=== PATIENT | female | born 1990 | race Caucasian/White ===

== ENCOUNTER 2017-05-24 20:19 | Emergency (ER) | payer OTHER, SELFPAY | END 2017-05-24 20:44 | disposition home or self-care (01) | PROVIDERS: Emergency Provider Nurse Practitioner; Family Provider Physician Assistant; Visit Provider Nurse Practitioner | DX: J10.1 Influenza due to other identified influenza virus with other respiratory manifestations (principal) | CPT/HCPCS: 87804; 99201 ==

== ENCOUNTER 2017-06-11 18:22 | Emergency (ER) | payer OTHER, SELFPAY ==
[2017-06-11 19:33] VITALS: BP 142/97; PULSE 85; RESP 18; TEMP 36.8; O2SAT 100; BMI 67.3
[2017-06-11 20:23] LABS: Microscopic, Urine URINE MICROSCOPIC (MICROSCOPIC)
[2017-06-11 20:29] LABS: Appearance,Urine Clear (Clear); Bilirubin,Urine Negative (Negative); Blood, Urine Negative (Negative); Color,Urine Yellow (Yellow); Glucose,Urine (UA) Negative (Negative); Ketones,Urine Negative (Negative); Leukocyte Esterase,Urine Negative (Negative); Nitrate,Urine Negative (Negative); Protein,Urine Negative (Negative); Specific Gravity, Urine 1.025 (1.005-1.030); Urobilinogen,Urine 0.2 EU/dl (0.2)
[2017-06-11 20:31] LABS: HCG,Quantitative 484 mIU/mL
--- NOTE | 2017-06-11 20:31 | HMH.EDGENADL ---
ED Disposition Clinical Impression: Lumbar back pain Qualifiers: Weeks of gestation: less than 8 weeks Qualified Code(s): Z3A.01 - Less than 8 weeks gestation of Disposition: Home, Self-Care Condition on Discharge: Good Instructions: DI for Low Back Pain Additional Instructions: keep appt with ob dr Referrals: Vanessa Snider PA [Primary Care Provider] - - Critical Care Critical Care Time: No Attestation: On 06/11/17, the high probability of a clinically significant, sudden or life threatening deterioration of the following system(s) required my full and direct attention, intervention and personal management. The time I documented below is in addition to time spent performing reported procedures but includes the following listed in this critical care notation. Medical Decision Making - Medical Records Medical records reviewed: Yes: I reviewed the patient's medical records. Vital Signs: 06/11/17 19:33 Temperature 98.3 F Temperature Source Oral Pulse Rate [Left Radial] 85 Respiratory Rate 18 Blood Pressure [Left Arm] 142/97 Blood Pressure Mean [Left Arm] 112 Blood Pressure Source [Left Arm] Automatic Cuff Blood Pressure Position [Left Arm] Supine 02 Sat by Pulse Oximetry 100 Oxygen Delivery Method Room Air - Lab Data Lab results reviewed: Yes: I reviewed the patient's lab results. Lab Results 06/11/17 20:10: Urine Color Yellow, Urine Appearance Clear, Urine pH 6.0, Ur Specific [place] 1.025, Urine Protein Negative, Urine Glucose (UA) Negative, Urine Ketones Negative, Urine Blood Negative, Urine Nitrate Negative, Urine Bilirubin Negative, Urine Urobilinogen 0.2, Ur Leukocyte Esterase Negative Orders (Tests/Meds): ED MEDICATIONS Discontinued Medications Generic Name Dose Route Start Last Admin Trade Name Pinky PRN Reason Stop Dose Admin Acetaminophen 650 mg 06/11/17 20:12 06/11/17 20:15 Acetaminophen 325mg Tab PO 06/11/17 20:13 650 mg ONCE ONE Administration - Pablo Inquiry Pt receiving controlled substance: No General Adult HPI - General Chief complaint: PAIN Stated complaint: back pain Time Seen by Provider: 06/11/17 20:31 Mode of Arrival: Ambulatory Source of Information: Patient Limitations: No Limitations Description of Symptoms (Recalled from ER Triage Doc. by RN): low back pain, after bending - History of Present Illness HPI narrative: pt with low back pain after bending yesterday with no radiation or neuro sx Onset (ago): day(s) Location: back Radiation: non-radiation Severity: moderate Quality: aching Consistency: intermittent Relieving factors: none Exacerbating factors: movement, other (pt is ) Treatments prior to arrival: none - Related Data Home Medications Medication Instructions Recorded Confirmed PARoxetine HCl [Paxil 20mg Tablet] 1 tab PO DAILY 06/11/17 06/11/17 Allergies Allergy/AdvReac Type Severity Reaction Status Date / Time sulfamethoxazole Allergy Unknown Verified 06/11/17 20:12 [SULFAMETHOXAZOLE] trimethoprim [TRIMETHOPRIM] Allergy Unknown Verified 06/11/17 20:12 [facility] History I have reviewed the patient's past medical history: Yes Medical History: Denies:: Cancer, Diabetes Mellitus Type 1, Diabetes Mellitus Type 2, MRSA Laterality Cases: Bilateral: Tonsillectomy Amputation: No Fractures: No - *Social History Educational Level: Completed High School Smoking Status: Never smoker Tobacco Type: smokeless tobacco Alcohol Intake: never - Psychiatric History Expresses thoughts of harming self/others: None Suicide Plan Description: No Plan Para: 0 ROS Obtained: Yes All systems reviewed & no additional complaints - Constitutional Constitutional: Denies fever(s) - Eyes Eyes: Denies change in vision - Cardiovascular Cardiovascular: Denies chest pain at rest - Respiratory Respiratory: No cough - Gastrointestinal Gastrointestingal: Denies: yodito
[2017-06-11 20:36] LABS: Bacteria,Urine Trace /lpf; WBC,Urine Occasional #/hpf (0-3)
--- NOTE | 2017-06-11 20:36 | ED_ITS ---
ED Disposition Clinical Impression: Lumbar back pain Qualifiers: Weeks of gestation: less than 8 weeks Qualified Code(s): Z3A.01 - Less than 8 weeks gestation of Disposition: Home, Self-Care Condition on Discharge: Good Instructions: DI for Low Back Pain Additional Instructions: keep appt with ob dr Referrals: Vanessa Snider PA [Primary Care Provider] - - Critical Care Critical Care Time: No Attestation: On 06/11/17, the high probability of a clinically significant, sudden or life threatening deterioration of the following system(s) required my full and direct attention, intervention and personal management. The time I documented below is in addition to time spent performing reported procedures but includes the following listed in this critical care notation. Medical Decision Making - Medical Records Medical records reviewed: Yes: I reviewed the patient's medical records. Vital Signs: 06/11/17 19:33 Temperature 98.3 F Temperature Source Oral Pulse Rate [Left Radial] 85 Respiratory Rate 18 Blood Pressure [Left Arm] 142/97 Blood Pressure Mean [Left Arm] 112 Blood Pressure Source [Left Arm] Automatic Cuff Blood Pressure Position [Left Arm] Supine 02 Sat by Pulse Oximetry 100 Oxygen Delivery Method Room Air - Lab Data Lab results reviewed: Yes: I reviewed the patient's lab results. Lab Results 06/11/17 20:10: Urine Color Yellow, Urine Appearance Clear, Urine pH 6.0, Ur Specific [place] 1.025, Urine Protein Negative, Urine Glucose (UA) Negative, Urine Ketones Negative, Urine Blood Negative, Urine Nitrate Negative, Urine Bilirubin Negative, Urine Urobilinogen 0.2, Ur Leukocyte Esterase Negative Orders (Tests/Meds): ED MEDICATIONS Discontinued Medications Generic Name Dose Route Start Last Admin Trade Name Pinky PRN Reason Stop Dose Admin Acetaminophen 650 mg 06/11/17 20:12 06/11/17 20:15 Acetaminophen 325mg Tab PO 06/11/17 20:13 650 mg ONCE ONE Administration - Pablo Inquiry Pt receiving controlled substance: No General Adult HPI - General Chief complaint: PAIN Stated complaint: back pain Time Seen by Provider: 06/11/17 20:31 Mode of Arrival: Ambulatory Source of Information: Patient Limitations: No Limitations Description of Symptoms (Recalled from ER Triage Doc. by RN): low back pain, after bending - History of Present Illness HPI narrative: pt with low back pain after bending yesterday with no radiation or neuro sx Onset (ago): day(s) Location: back Radiation: non-radiation Severity: moderate Quality: aching Consistency: intermittent Relieving factors: none Exacerbating factors: movement, other (pt is ) Treatments prior to arrival: none - Related Data Home Medications Medication Instructions Recorded Confirmed PARoxetine HCl [Paxil 20mg Tablet] 1 tab PO DAILY 06/11/17 06/11/17 Allergies Allergy/AdvReac Type Severity Reaction Status Date / Time sulfamethoxazole Allergy Unknown Verified 06/11/17 20:12 [SULFAMETHOXAZOLE] trimethoprim [TRIMETHOPRIM] Allergy Unknown Verified 06/11/17 20:12 [facility] History I have reviewed the patient's past medical history: Yes Medical History: Denies:: Can
[2017-06-11 20:49] VITALS: BP 138/62; PULSE 78; RESP 20; TEMP 36.9; O2SAT 97
== END 2017-06-11 20:49 | disposition home or self-care (01) ==
LOC: UTC 18:27 → ER 19:24
PROVIDERS: Emergency Provider Emergency Medicine; Family Provider Physician Assistant; PCP Physician Assistant
DX: O26.891 Other specified pregnancy related conditions, first trimester (principal); M54.5 Low back pain; Z3A.01 Less than 8 weeks gestation of pregnancy
CPT/HCPCS: 81001; 84702; 99283

== ENCOUNTER → 2017-06-20 15:57 | Outpatient (CLI) | payer OTHER, SELFPAY ==
[2017-06-20 18:44] LABS: Basophils % 0.3 % (0.1-2.0); Eosinophils # 0.1 K/mm3 (0.0-0.4); Eosinophils % 1.5 % (0.1-12.0); Hematocrit 40.7 % (37.0-47.0); Hemoglobin 12.7 g/dL (12.2-16.2); Lymphocytes % 36.3 K/mm3 (10-50); Mean Corpuscular HGB Conc 31.2 g/dL (31.8-35.4); Mean Corpuscular Hemoglobin 24.6 pg (27.0-31.2); Mean Corpuscular Volume 78.8 fl (81-99); Mean Platelet Volume 8.3 fl (7.4-10.4); Monocytes # 0.3 K/mm3 (0.1-1.0); Monocytes % 3.8 % (1.7-9.3); Neutrophils # 4.9 K/mm3 (1.8-7.8); Neutrophils % 58.2 % (37.0-80.0); Platelet Count 286 K/mm3 (142-424); Red Blood Count 5.17 M/mm3 (4.20-5.40); Red Cell Distribution Width 15.3 % (11.5-17.5); White Blood Count 8.4 K/mm3 (4.8-10.8)
[2017-06-20 19:16] LABS: Thyroid Stimulating Hormone 0.09 uIU/ml (0.358-3.740)
[2017-06-20 19:21] LABS: HCG,Quantitative 14 mIU/mL
[2017-06-20 23:11] LABS: Amphetamine/Metha Screen,Urine Negative ng/mL (<1000); Barbiturates Screen,Urine Negative ng/mL (<200); Benzodiazepines Screen,Urine Negative ng/mL (200); Cannabinoid Screen,Urine Negative ng/mL (<50); Cocaine Screen,Urine Negative ng/g (<300); Methadone Screen,Urine Negative ng/mL (<300); Opiate Screen,Urine Negative ng/mL (<300); Phencyclidine Screen,Urine Negative ng/mL (<25)
[2017-06-22 18:29] LABS: HIV Screen 4th Generation wRfx Non Reactive (Non Reactive); Hepatitis B Surface Antigen Negative (Negative); Rubella Antibodies, IgG 5.59 index (Immune >0.99)
== END ==
PROVIDERS: Family Provider Physician Assistant; PCP Physician Assistant; Visit Provider Obstetrics & Gynecology
DX: Z34.90 Encounter for supervision of normal pregnancy, unspecified, unspecified trimester (principal)
CPT/HCPCS: 36415; 80305; 84443; 84702; 85025; 86703; 86762; 86850; 87340; G0432

== ENCOUNTER 2017-06-22 12:43 | Emergency (ER) | payer OTHER, SELFPAY ==
[2017-06-22 12:50] VITALS: BP 149/98; PULSE 97; RESP 18; O2SAT 96; BMI 65.7
--- NOTE | 2017-06-22 12:59 | US_ITS ---
US transvaginal HISTORY: ITS.REASON: amenorrhea and vag bleeding, hx of positive preg t ORDERING PHYSICIAN: Vickie Fernandez MD PATIENT AGE: 26 years COMPARISON: None FINDINGS: The exam is technically difficult due to patient body habitus. UTERUS: The uterus measures 8 x 3.5 x 4.6 cm. Combined endometrial thickness is 7 mm. No intrauterine gestational sac apparent. RIGHT OVARY: 2.5 x 2.2 cm unremarkable LEFT OVARY: 2.5 x 1.9 cm unremarkable CUL-DE-SAC FLUID: No cul-de-sac fluid apparent OTHER FINDINGS: None IMPRESSION: No intrauterine gestation apparent. Recommend correlation with serum beta hCG. If beta hCG is positive then it may be too early to see an intrauterine gestation. Ectopic is also considered in the differential diagnosis with a positive test and no visible intrauterine gestational size
--- NOTE | 2017-06-22 13:01 | HMH.EDPREG ---
ED Disposition Clinical Impression: Vaginal bleeding, Obesity, RBC microcytosis, Dysfunctional uterine bleeding, First trimester Disposition: Home, Self-Care Condition on Discharge: Good Additional Instructions: The patient was advised to start using pads. follow up with Dr Angel in AM for possible D & C to determine the cause of her bleeding and misleading positive preg tests at home. daily iron supplement. return if for worse bleeding or if pain develops. Referrals: Vanessa Snider PA [Primary Care Provider] - Palomo Angel MD [Staff Physician] - - Critical Care Critical Care Time: No Attestation: On , the high probability of a clinically significant, sudden or life threatening deterioration of the following system(s) required my full and direct attention, intervention and personal management. The time I documented below is in addition to time spent performing reported procedures but includes the following listed in this critical care notation. Medical Decision Making - Medical Records Medical records reviewed: Yes: I reviewed the patient's medical records. Vital Signs: 06/22/17 12:50 Pulse Rate [Right Brachial] 97 H Respiratory Rate 18 Blood Pressure [Right Arm] 149/98 Blood Pressure Mean [Right Arm] 115 Blood Pressure Source [Right Arm] Automatic Cuff Blood Pressure Position [Right Arm] Sitting 02 Sat by Pulse Oximetry 96 Oxygen Delivery Method Room Air - Lab Data Lab Results 06/22/17 13:11: WBC 8.3, RBC 5.39, Hgb 13.1, Hct 41.7, MCV 77.3 L, MCH 24.3 L, MCHC 31.4 L, RDW 15.2, Plt Count 304, MPV 7.9, Neut % (Auto) 52.3, Lymph % (Auto) 41.3, [place] % (Auto) 4.5, Eos % (Auto) 1.6, Baso % (Auto) 0.3, Neut # (Auto) 4.4, Lymph # (Auto) 3.4, [place] # (Auto) 0.4, Eos # (Auto) 0.1, Baso # (Auto) 0.0 06/22/17 13:11: Sodium 140, Potassium 3.7, Chloride 104, Carbon Dioxide 29, Anion Gap 10.7, BUN 13, Creatinine 0.73, Estimated Creat Clear 97, Estimated GFR 97, Est GFR ( Amer) 118, Glucose 93, Calcium 8.9, Total Bilirubin 0.2, AST 17, ALT 27, Alkaline Phosphatase 87, Total Protein 8.1, Albumin 3.4, Globulin 4.7 H, Albumin/Globulin Ratio 0.7 L, HCG, Quant 6 H 06/22/17 13:30: Blood Type O Positive Result diagrams: 06/22/17 13:11 06/22/17 13:11 Orders (Tests/Meds): ED MEDICATIONS Discontinued Medications Generic Name Dose Route Start Last Admin Trade Name Pinky PRN Reason Stop Dose Admin Sodium Chloride 1,000 mls @ 999 mls/hr 06/22/17 13:00 06/22/17 13:23 Sod Chloride 0.9% 1000ml Bag IV 06/22/17 14:00 999 mls/hr .Q1H1M CRISTIANO Administration ORDERS Category Date Time Status US transvaginal Stat Exams 06/22/17 12:59 Ordered - Pablo Inquiry Pt receiving controlled substance: No Pablo was queried for this patient: No Medical Decision Making Narrative: Ultrasound examination there was no detectable . Her quantitative was 6. I called Dr. Bland honest john rocket crew member administration specialist. Me that she is not . She is to follow with Dr. Angel on Saturday. He will leave a message for his office to schedule her. HPI - General Chief complaint: Vaginal Bleeding Stated complaint: 2 months and bleeding Time Seen by Provider: 06/22/17 13:01 Source of Information: Patient, Significant Other - History of Present Illness HPI Narrative: 26 years old white female 1 para 0 A0. Last menstrual period May 02, 2017. She underwent a positive test on June 19, 2017. She so Dr. Angel on June 20 underwent 2 negative tests. She was told to come to the ED if she has any bleeding. Today, 1 hour ago while at work she went to use the bathroom and when she wiped she saw blood. 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 She denies passing blood clots or changing pads . 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
--- NOTE | 2017-06-22 13:05 | ED_ITS ---
ED Disposition Clinical Impression: Vaginal bleeding, Obesity, RBC microcytosis, Dysfunctional uterine bleeding, First trimester Disposition: Home, Self-Care Condition on Discharge: Good Additional Instructions: The patient was advised to start using pads. follow up with Dr Angel in AM for possible D & C to determine the cause of her bleeding and misleading positive preg tests at home. daily iron supplement. return if for worse bleeding or if pain develops. Referrals: Vanessa Snider PA [Primary Care Provider] - Palomo Angel MD [Staff Physician] - - Critical Care Critical Care Time: No Attestation: On , the high probability of a clinically significant, sudden or life threatening deterioration of the following system(s) required my full and direct attention, intervention and personal management. The time I documented below is in addition to time spent performing reported procedures but includes the following listed in this critical care notation. Medical Decision Making - Medical Records Medical records reviewed: Yes: I reviewed the patient's medical records. Vital Signs: 06/22/17 12:50 Pulse Rate [Right Brachial] 97 H Respiratory Rate 18 Blood Pressure [Right Arm] 149/98 Blood Pressure Mean [Right Arm] 115 Blood Pressure Source [Right Arm] Automatic Cuff Blood Pressure Position [Right Arm] Sitting 02 Sat by Pulse Oximetry 96 Oxygen Delivery Method Room Air - Lab Data Lab Results 06/22/17 13:11: WBC 8.3, RBC 5.39, Hgb 13.1, Hct 41.7, MCV 77.3 L, MCH 24.3 L, MCHC 31.4 L, RDW 15.2, Plt Count 304, MPV 7.9, Neut % (Auto) 52.3, Lymph % (Auto ) 41.3, [place] % (Auto) 4.5, Eos % (Auto) 1.6, Baso % (Auto) 0.3, Neut # (Auto) 4.4, Lymph # (Auto) 3.4, [place] # (Auto) 0.4, Eos # (Auto) 0.1, Baso # (Auto) 0.0 06/22/17 13:11: Sodium 140, Potassium 3.7, Chloride 104, Carbon Dioxide 29, Anion Gap 10.7, BUN 13, Creatinine 0.73, Estimated Creat Clear 97, Estimated GFR 97, Est GFR ( Amer) 118, Glucose 93, Calcium 8.9, Total Bilirubin 0.2 , AST 17, ALT 27, Alkaline Phosphatase 87, Total Protein 8.1, Albumin 3.4, Globulin 4.7 H, Albumin/Globulin Ratio 0.7 L, HCG, Quant 6 H 06/22/17 13:30: Blood Type O Positive Result diagrams: 06/22/17 13:11 06/22/17 13:11 Orders (Tests/Meds): ED MEDICATIONS Discontinued Medications Generic Name Dose Route Start Last Admin Trade Name Pinky PRN Reason Stop Dose Admin Sodium Chloride 1,000 mls @ 999 mls/hr 06/22/17 13:00 06/22/17 13:23 Sod Chloride 0.9% 1000ml Bag IV 06/22/17 14:00 999 mls/hr .Q1H1M CRISTIANO Administration ORDERS Category Date Time Status US transvaginal Stat Exams 06/22/17 12:59 Ordered - Pablo Inquiry Pt receiving controlled substance: No Pablo was queried for this patient: No Medical Decision Making Narrative: Ultrasound examination there was no detectable . Her quantitative was 6. I called Dr. Bland senior clinical consultant bird trapper. Me that she is not . She is to follow with Dr. Angel on Saturday. He will leave a message for his office to schedule her. HPI - General Chief complaint: Vaginal Bleeding Stated complaint: 2 months and bleeding Time Seen by Provider: 06/22/17 13:01 Source of Information: Patient, Significant Other - History of Present Illness HPI Narrative: 26 yea
[2017-06-22 13:21] LABS: Basophils % 0.3 % (0.1-2.0); Eosinophils # 0.1 K/mm3 (0.0-0.4); Eosinophils % 1.6 % (0.1-12.0); Hematocrit 41.7 % (37.0-47.0); Hemoglobin 13.1 g/dL (12.2-16.2); Lymphocytes # 3.4 K/mm3 (0.7-4.5); Lymphocytes % 41.3 K/mm3 (10-50); Mean Corpuscular HGB Conc 31.4 g/dL (31.8-35.4); Mean Corpuscular Hemoglobin 24.3 pg (27.0-31.2); Mean Corpuscular Volume 77.3 fl (81-99); Mean Platelet Volume 7.9 fl (7.4-10.4); Monocytes # 0.4 K/mm3 (0.1-1.0); Monocytes % 4.5 % (1.7-9.3); Neutrophils # 4.4 K/mm3 (1.8-7.8); Neutrophils % 52.3 % (37.0-80.0); Platelet Count 304 K/mm3 (142-424); Red Blood Count 5.39 M/mm3 (4.20-5.40); Red Cell Distribution Width 15.2 % (11.5-17.5); White Blood Count 8.3 K/mm3 (4.8-10.8)
[2017-06-22 13:41] LABS: Alanine Aminotransferase 27 U/L (12-78); Albumin Level 3.4 gm/dL (3.4-5.0); Albumin/Globulin Ratio 0.7 (1.1-1.8); Alkaline Phosphatase 87 U/L (46-116); Anion Gap 10.7 mEq/L (5-15); Aspartate Amino Transferase 17 U/L (15-37); Bilirubin,Total 0.2 mg/dL (0.2-1.0); Blood Urea Nitrogen 13 mg/dL (7-18); Calcium 8.9 mg/dL (8.5-10.1); Carbon Dioxide 29 mmol/L (21.0-32.0); Chloride 104 mmol/L (98-107); Creatinine Clearance Estimated 97 mL/min (0-300); Creatinine,Serum 0.73 mg/dL (0.55-1.02); Estimated Glomerular Filt Rate 97 ml/min (>60); GFR (African American) 118 ML/MIN (>60); Globulin 4.7 gm/dl (1.3-3.2); Glucose 93 mg/dL (74-106); Potassium 3.7 mmoL/L (3.5-5.1); Sodium 140 mmol/L (136-145); Total Protein,Serum 8.1 gm/dL (6.4-8.2)
[2017-06-22 13:47] LABS: HCG,Quantitative 6 mIU/mL
[2017-06-22 14:21] VITALS: BP 125/74; PULSE 80; TEMP 36.8
== END 2017-06-22 14:21 | disposition home or self-care (01) ==
PROVIDERS: Emergency Provider Emergency Medicine; Family Provider Physician Assistant; PCP Physician Assistant
DX: O03.9 Complete or unspecified spontaneous abortion without complication (principal); E66.9 Obesity, unspecified; N93.8 Other specified abnormal uterine and vaginal bleeding; Z79.899 Other long term (current) drug therapy; Z88.8 Allergy status to other drugs, medicaments and biological substances
CPT/HCPCS: 36415; 76830; 80053; 84702; 85025; 86900; 86901; 96365; 99281; 99282

== ENCOUNTER 2017-06-26 19:04 | Emergency (ER) | payer OTHER, SELFPAY ==
[2017-06-26 19:05] VITALS: BP 107/73; PULSE 101; RESP 14; TEMP 37.1; O2SAT 97; BMI 67.8
--- NOTE | 2017-06-26 19:25 | XR_ITS ---
XR chest 2V HISTORY: Hypertension ORDERING PHYSICIAN: Kenrick Moe MD PATIENT AGE: 26 years COMPARISON: None available FINDINGS: Cardiac size is upper limits of normal. No CHF.. 1 7-m nodule present in the right midlung. There may be some calcification of the nodule centrally. The remaining lungs are clear. No effusions or infiltrates. No acute bony anomalies. IMPRESSION: Right midlung nodule which may represent a granuloma. Follow-up recommended for confirmation..
[2017-06-26 19:29] LABS: Basophils % 0.3 % (0.1-2.0); Eosinophils # 0.1 K/mm3 (0.0-0.4); Eosinophils % 1.1 % (0.1-12.0); Hematocrit 41.3 % (37.0-47.0); Hemoglobin 12.7 g/dL (12.2-16.2); Lymphocytes # 4.1 K/mm3 (0.7-4.5); Lymphocytes % 43.6 K/mm3 (10-50); Mean Corpuscular HGB Conc 30.8 g/dL (31.8-35.4); Mean Corpuscular Volume 78.1 fl (81-99); Monocytes # 0.4 K/mm3 (0.1-1.0); Monocytes % 4.3 % (1.7-9.3); Neutrophils # 4.7 K/mm3 (1.8-7.8); Neutrophils % 50.7 % (37.0-80.0); Platelet Count 293 K/mm3 (142-424); Red Blood Count 5.29 M/mm3 (4.20-5.40); Red Cell Distribution Width 15.2 % (11.5-17.5); White Blood Count 9.4 K/mm3 (4.8-10.8)
[2017-06-26 19:32] LABS: Microscopic, Urine URINE MICROSCOPIC (MICROSCOPIC)
[2017-06-26 19:34] VITALS: BP 118/71; PULSE 96; O2SAT 98
[2017-06-26 19:40] LABS: Appearance,Urine CLEAR (Clear); Bilirubin,Urine Negative (Negative); Blood, Urine 3+ (Negative); Color,Urine YELLOW (Yellow); Glucose,Urine (UA) Negative (Negative); Ketones,Urine Negative (Negative); Leukocyte Esterase,Urine Negative (Negative); Nitrate,Urine Negative (Negative); Protein,Urine Negative (Negative); Specific Gravity, Urine >= 1.030 (1.005-1.030); Urobilinogen,Urine 0.2 EU/dl (0.2)
[2017-06-26 19:58] LABS: Bacteria,Urine 2+ /lpf; Mucus,Urine 1+ /lpf; Squamous Epithelial Cell,Urine 20-50 #/hpf (0-5)
[2017-06-26 20:00] LABS: Creatine Kinase 138 U/L (26-192); Troponin I < 0.02 ng/ml (0.00-0.06)
[2017-06-26 20:02] LABS: CKMB Relative Index 0.4 U/L (0-4.0); Creatine Kinase MB < 0.5 mg/ml (0.0-3.6)
[2017-06-26 20:06] LABS: Alanine Aminotransferase 27 U/L (12-78); Albumin Level 3.2 gm/dL (3.4-5.0); Albumin/Globulin Ratio 0.7 (1.1-1.8); Alkaline Phosphatase 91 U/L (46-116); Anion Gap 10.6 mEq/L (5-15); Aspartate Amino Transferase 17 U/L (15-37); Bilirubin,Total 0.1 mg/dL (0.2-1.0); Blood Urea Nitrogen 15 mg/dL (7-18); Calcium 8.8 mg/dL (8.5-10.1); Carbon Dioxide 29 mmol/L (21.0-32.0); Chloride 108 mmol/L (98-107); Creatinine Clearance Estimated 115 mL/min (0-300); Creatinine,Serum 0.59 mg/dL (0.55-1.02); Estimated Glomerular Filt Rate 124 ml/min (>60); GFR (African American) 150 ML/MIN (>60); Globulin 4.7 gm/dl (1.3-3.2); Glucose 90 mg/dL (74-106); Potassium 3.6 mmoL/L (3.5-5.1); Sodium 144 mmol/L (136-145); Total Protein,Serum 7.9 gm/dL (6.4-8.2)
--- NOTE | 2017-06-26 20:29 | HMH.EDGENADL ---
ED Disposition Clinical Impression: Headache Qualifiers: Headache type: unspecified Headache chronicity pattern: acute headache Intractability: not intractable Qualified Code(s): R51 - Headache Disposition: Home, Self-Care Condition on Discharge: Good Instructions: DI for Headache Additional Instructions: see pcp for follow up Referrals: Vanessa Snider PA [Primary Care Provider] - - Critical Care Critical Care Time: No Attestation: On 06/26/17, the high probability of a clinically significant, sudden or life threatening deterioration of the following system(s) required my full and direct attention, intervention and personal management. The time I documented below is in addition to time spent performing reported procedures but includes the following listed in this critical care notation. Medical Decision Making - Medical Records Medical records reviewed: Yes: I reviewed the patient's medical records. Vital Signs: 06/26/17 19:05 06/26/17 19:34 Temperature 98.7 F Temperature Source Oral Pulse Rate [Right Brachial] 101 H 96 H Respiratory Rate 14 Blood Pressure [Right Arm] 107/73 118/71 Blood Pressure Mean [Right Arm] 84 86 Blood Pressure Source [Right Arm] Automatic Cuff Automatic Cuff Blood Pressure Position [Right Arm] Sitting Sitting 02 Sat by Pulse Oximetry 97 98 Oxygen Delivery Method Room Air Room Air - Lab Data Lab Results 06/26/17 19:20: Urine Color Yellow, Urine Appearance Clear, Urine pH 6.0, Ur Specific [place] >= 1.030, Urine Protein Negative, Urine Glucose (UA) Negative, Urine Ketones Negative, Urine Blood 3+, Urine Nitrate Negative, Urine Bilirubin Negative, Urine Urobilinogen 0.2, Ur Leukocyte Esterase Negative, Urine RBC 3-5, Urine WBC 5-10, Ur Squamous Epith Cells 20-50, Urine Bacteria 2+, Urine Mucus 1+ 06/26/17 19:20: WBC 9.4, RBC 5.29, Hgb 12.7, Hct 41.3, MCV 78.1 L, MCH 24.0 L, MCHC 30.8 L, RDW 15.2, Plt Count 293, MPV 8.0, Neut % (Auto) 50.7, Lymph % (Auto) 43.6, [place] % (Auto) 4.3, Eos % (Auto) 1.1, Baso % (Auto) 0.3, Neut # (Auto) 4.7, Lymph # (Auto) 4.1, [place] # (Auto) 0.4, Eos # (Auto) 0.1, Baso # (Auto) 0.0 06/26/17 19:20: Sodium 144, Potassium 3.6, Chloride 108 H, Carbon Dioxide 29, Anion Gap 10.6, BUN 15, Creatinine 0.59, Estimated Creat Clear 115, Estimated GFR 124, Est GFR ( Amer) 150, Glucose 90, Calcium 8.8, Total Bilirubin 0.1 L, AST 17, ALT 27, Alkaline Phosphatase 91, Total Protein 7.9, Albumin 3.2 L, Globulin 4.7 H, Albumin/Globulin Ratio 0.7 L 06/26/17 19:20: Total Creatine Kinase 138, CK-MB (CK-2) < 0.5, CK-MB (CK-2) Rel Index 0.4, Troponin I < 0.02 06/26/17 19:20: Urine HCG, Qual Negative Result diagrams: 06/26/17 19:20 06/26/17 19:20 Orders (Tests/Meds): ORDERS Category Date Time Status Urine Culture Stat Micro 06/26/17 19:20 Received ECG Request by /Johanna Stat Y 06/26/17 19:17 Ordered - Radiology Data #1 Image(s): Chest Image Reviewed: Yes I reviewed the patient's radiology image Preliminary Findings: Normal/NAD - ECG Data Tracing #1 I reviewed this ECG and interpreted as documented below: - Pablo Inquiry Pt receiving controlled substance: No General Adult HPI - General Chief complaint: PAIN Stated complaint: H/A, HTN Time Seen by Provider: 06/26/17 20:29 Mode of Arrival: Ambulatory Source of Information: Patient, Spouse, Medical Record Limitations: No Limitations Description of Symptoms (Recalled from ER Triage Doc. by RN): PT WAS C/O HEADACHE AT WORK, AND THE NURSE THERE TOLD HER TO COME TO THE ER FOR BP OF 142/90 PT DENIES ANY CP OR SOA - History of Present Illness HPI narrative: pt with lieberman at work and has elevated bp - no neuro sx and no other c/o Onset (ago): day(s) Severity: moderate Associated symptoms: headaches. negative: fever/chills - Related Data Home Medications Medication Instructions Recorded Confirmed 1 tab PO QDAY 06/20/17 06/26/17 vitamin,calcium,[id number]
[2017-06-26 20:30] LABS: Urine Pregnancy, HCG Qual. Negative (Negative)
--- NOTE | 2017-06-26 20:35 | ED_ITS ---
ED Disposition Clinical Impression: Headache Qualifiers: Headache type: unspecified Headache chronicity pattern: acute headache Intractability: not intractable Qualified Code(s): R51 - Headache Disposition: Home, Self-Care Condition on Discharge: Good Instructions: DI for Headache Additional Instructions: see pcp for follow up Referrals: Vanessa Snider PA [Primary Care Provider] - - Critical Care Critical Care Time: No Attestation: On 06/26/17, the high probability of a clinically significant, sudden or life threatening deterioration of the following system(s) required my full and direct attention, intervention and personal management. The time I documented below is in addition to time spent performing reported procedures but includes the following listed in this critical care notation. Medical Decision Making - Medical Records Medical records reviewed: Yes: I reviewed the patient's medical records. Vital Signs: 06/26/17 19:05 06/26/17 19:34 Temperature 98.7 F Temperature Source Oral Pulse Rate [Right Brachial] 101 H 96 H Respiratory Rate 14 Blood Pressure [Right Arm] 107/73 118/71 Blood Pressure Mean [Right Arm] 84 86 Blood Pressure Source [Right Arm] Automatic Cuff Automatic Cuff Blood Pressure Position [Right Arm] Sitting Sitting 02 Sat by Pulse Oximetry 97 98 Oxygen Delivery Method Room Air Room Air - Lab Data Lab Results 06/26/17 19:20: Urine Color Yellow, Urine Appearance Clear, Urine pH 6.0, Ur Specific [place] >= 1.030, Urine Protein Negative, Urine Glucose (UA) Negative, Urine Ketones Negative, Urine Blood 3+, Urine Nitrate Negative, Urine Bilirubin Negative, Urine Urobilinogen 0.2, Ur Leukocyte Esterase Negative, Urine RBC 3-5 , Urine WBC 5-10, Ur Squamous Epith Cells 20-50, Urine Bacteria 2+, Urine Mucus 1+ 06/26/17 19:20: WBC 9.4, RBC 5.29, Hgb 12.7, Hct 41.3, MCV 78.1 L, MCH 24.0 L, MCHC 30.8 L, RDW 15.2, Plt Count 293, MPV 8.0, Neut % (Auto) 50.7, Lymph % (Auto ) 43.6, [place] % (Auto) 4.3, Eos % (Auto) 1.1, Baso % (Auto) 0.3, Neut # (Auto) 4.7, Lymph # (Auto) 4.1, [place] # (Auto) 0.4, Eos # (Auto) 0.1, Baso # (Auto) 0.0 06/26/17 19:20: Sodium 144, Potassium 3.6, Chloride 108 H, Carbon Dioxide 29, Anion Gap 10.6, BUN 15, Creatinine 0.59, Estimated Creat Clear 115, Estimated GFR 124, Est GFR ( Amer) 150, Glucose 90, Calcium 8.8, Total Bilirubin 0.1 L, AST 17, ALT 27, Alkaline Phosphatase 91, Total Protein 7.9, Albumin 3.2 L , Globulin 4.7 H, Albumin/Globulin Ratio 0.7 L 06/26/17 19:20: Total Creatine Kinase 138, CK-MB (CK-2) < 0.5, CK-MB (CK-2) Rel Index 0.4, Troponin I < 0.02 06/26/17 19:20: Urine HCG, Qual Negative Result diagrams: 06/26/17 19:20 06/26/17 19:20 Orders (Tests/Meds): ORDERS Category Date Time Status Urine Culture Stat Micro 06/26/17 19:20 Received ECG Request by /Johanna Stat Y 06/26/17 19:17 Ordered - Radiology Data #1 Image(s): Chest Image Reviewed: Yes I reviewed the patient's radiology image Preliminary Findings: Normal/NAD - ECG Data Tracing #1 I reviewed this ECG and interpreted as documented below: - Pablo Inquiry Pt receiving controlled substance: No General Adult HPI - General Chief complaint: PAIN Stated complaint: H/A, HTN Time Seen by Provider: 06/26/17 20:29 Mode of Arrival: Ambulatory Source of Information: Patient, Spouse, Medical Record Limitations: No Limitations Description
== END 2017-06-26 20:57 | disposition home or self-care (01) ==
PROVIDERS: Emergency Provider Emergency Medicine; Family Provider Physician Assistant; PCP Physician Assistant
DX: R51 Headache (principal); R03.0 Elevated blood-pressure reading, without diagnosis of hypertension
CPT/HCPCS: 71046; 80053; 81001; 81025; 82550; 82553; 84484; 85025; 87086; 93005; 93041; 99284

== ENCOUNTER 2017-08-17 18:43 | Emergency (ER) | payer OTHER, SELFPAY ==
[2017-08-17 18:49] VITALS: BP 143/78; PULSE 96; RESP 22; TEMP 37; O2SAT 98; BMI 67.3
--- NOTE | 2017-08-17 19:17 | HMH.EDDENT ---
ED Disposition Clinical Impression: Dental caries, Dental caries limited to enamel Disposition: Home, Self-Care Condition on Discharge: Good Instructions: DI for Dental Pain Additional Instructions: See dentist of choice next week or go to [facility] urgent dental clinic in [place]. 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 The time I documented below is in addition to time spent performing reported procedures but includes the following listed in this critical care notation. Medical Decision Making - Pablo Inquiry Pt receiving controlled substance: No Vital Signs: 08/17/17 18:49 Temperature 98.6 F Temperature Source Oral Pulse Rate [Left Brachial] 96 H Respiratory Rate 22 Blood Pressure [Left Arm] 143/78 Blood Pressure Mean [Left Arm] 99 Blood Pressure Source [Left Arm] Automatic Cuff Blood Pressure Position [Left Arm] Sitting 02 Sat by Pulse Oximetry 98 Oxygen Delivery Method Room Air Orders (Tests/Meds): ED MEDICATIONS Discontinued Medications Generic Name Dose Route Start Last Admin Trade Name Freq PRN Reason Stop Dose Admin Benzocaine/Butamben/Tetracaine HCl 1 gm 08/17/17 18:57 Cetacaine [place] TP 08/17/17 18:58 ONCE ONE Lidocaine HCl 15 ml 08/17/17 18:57 Lidocaine 2% Viscous Solution 15ml Udc PO 08/17/17 18:58 ONCE ONE Dental HPI - General Chief complaint: Dental/Oral Stated complaint: dental pain Time Seen by Provider: 08/17/17 19:21 Mode of Arrival: Ambulatory Limitations: No Limitations Description of Symptoms (Recalled from ER Triage Doc. by RN): Dental pain - History of Present Illness HPI Narrative: Has chronically broken tooth number 1. Recently hurting over past week without any acute trauma; no fever or vomiting; no swelling; needs a dentist and knows of several locally. Has not been to a dentist in many years. MD Complaint: tooth pain Location: Tooth # (1) Onset (ago): week(s) Duration: constant Severity: mild Relieving factors: nothing Exacerbating factors: chewing Context: history of dental caries, poor dental care Treatment prior to arrival: none - Related Data Home Medications Medication Instructions Recorded Confirmed 1 tab PO QDAY 06/20/17 06/26/17 vitamin,calcium,pclxwqrs-iayg-twqdi acid tablet Previous Rx's Medication Instructions Recorded Amoxicillin [Amoxicillin 500mg 500 mg PO TID 10 Days #30 cap 08/17/17 Cap] Naproxen [EC-Naprosyn] 500 mg PO BID PRN #20 tablet. 08/17/17 Allergies Allergy/AdvReac Type Severity Reaction Status Date / Time sulfamethoxazole Allergy Unknown Verified 06/20/17 14:53 [SULFAMETHOXAZOLE] trimethoprim [TRIMETHOPRIM] Allergy Unknown Verified 06/20/17 14:53 [facility] History Medical History: Denies:: Cancer, Diabetes Mellitus Type 1, Diabetes Mellitus Type 2, MRSA Laterality Cases: Bilateral: Tonsillectomy Amputation: No Fractures: No - Social History Smoking Status: Current every day smoker Tobacco Type: cigarettes Alcohol Intake: never Substance Use Type: painkillers - Psychiatric History Expresses thoughts of harming self/others: None Suicide Plan Description: No Plan ROS Obtained: Yes All systems reviewed & no additional complaints - Genitourinary Female Genitourinary: Reports other (had spont AB three months ago; did a preg test yesterday that was negative) Physical Exam - General General appearance: alert, in no apparent dist
--- NOTE | 2017-08-17 19:21 | ED_ITS ---
ED Disposition Clinical Impression: Dental caries, Dental caries limited to enamel Disposition: Home, Self-Care Condition on Discharge: Good Instructions: DI for Dental Pain Additional Instructions: See dentist of choice next week or go to [facility] urgent dental clinic in [place]. 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 The time I documented below is in addition to time spent performing reported procedures but includes the following listed in this critical care notation. Medical Decision Making - Pablo Inquiry Pt receiving controlled substance: No Vital Signs: 08/17/17 18:49 Temperature 98.6 F Temperature Source Oral Pulse Rate [Left Brachial] 96 H Respiratory Rate 22 Blood Pressure [Left Arm] 143/78 Blood Pressure Mean [Left Arm] 99 Blood Pressure Source [Left Arm] Automatic Cuff Blood Pressure Position [Left Arm] Sitting 02 Sat by Pulse Oximetry 98 Oxygen Delivery Method Room Air Orders (Tests/Meds): ED MEDICATIONS Discontinued Medications Generic Name Dose Route Start Last Admin Trade Name Freq PRN Reason Stop Dose Admin Benzocaine/Butamben/Tetracaine HCl 1 gm 08/17/17 18:57 Cetacaine [place] TP 08/17/17 18:58 ONCE ONE Lidocaine HCl 15 ml 08/17/17 18:57 Lidocaine 2% Viscous Solution 15ml Udc PO 08/17/17 18:58 ONCE ONE Dental HPI - General Chief complaint: Dental/Oral Stated complaint: dental pain Time Seen by Provider: 08/17/17 19:21 Mode of Arrival: Ambulatory Limitations: No Limitations Description of Symptoms (Recalled from ER Triage Doc. by RN): Dental pain - History of Present Illness HPI Narrative: Has chronically broken tooth number 1. Recently hurting over past week without any acute trauma; no fever or vomiting; no swelling; needs a dentist and knows of several locally. Has not been to a dentist in many years. MD Complaint: tooth pain Location: Tooth # (1) Onset (ago): week(s) Duration: constant Severity: mild Relieving factors: nothing Exacerbating factors: chewing Context: history of dental caries, poor dental care Treatment prior to arrival: none - Related Data Home Medications Medication Instructions Recorded Confirmed 1 tab PO QDAY 06/20/17 06/26/17 vitamin,calcium,ymxknxkc-wviy-wlkju acid tablet Previous Rx's Medication Instructions Recorded Amoxicillin [Amoxicillin 500mg 500 mg PO TID 10 Days #30 cap 08/17/17 Cap] Naproxen [EC-Naprosyn] 500 mg PO BID PRN #20 tablet. 08/17/17 Allergies Allergy/AdvReac Type Severity Reaction Status Date / Time sulfamethoxazole Allergy Unknown Verified 06/20/17 14:53 [SULFAMETHOXAZOLE] trimethoprim [TRIMETHOPRIM] Allergy Unknown
[2017-08-17 19:52] VITALS: BP 134/74; PULSE 84; RESP 16; TEMP 36.8; O2SAT 18
== END 2017-08-17 19:54 | disposition home or self-care (01) ==
PROVIDERS: Emergency Provider Emergency Medicine; Family Provider Physician Assistant; PCP Physician Assistant
DX: K02.9 Dental caries, unspecified (principal)
CPT/HCPCS: 99281

== ENCOUNTER → 2018-07-04 09:48 | Outpatient (CLI) | payer OTHER, SELFPAY ==
[2018-07-04 10:32] LABS: Basophils % 0.2 % (0.1-2.0); Eosinophils # 0.1 K/mm3 (0.0-0.4); Hematocrit 39.4 % (37.0-47.0); Hemoglobin 12.4 g/dL (12.2-16.2); Lymphocytes # 2.3 K/mm3 (0.7-4.5); Lymphocytes % 28.6 % (10-50); Mean Corpuscular HGB Conc 31.5 g/dL (31.8-35.4); Mean Corpuscular Hemoglobin 23.9 pg (27.0-31.2); Mean Corpuscular Volume 75.9 fl (81-99); Mean Platelet Volume 6.5 fl (7.4-10.4); Monocytes # 0.3 K/mm3 (0.1-1.0); Monocytes % 3.8 % (1.7-9.3); Neutrophils # 5.3 K/mm3 (1.8-7.8); Neutrophils % 66.4 % (37.0-80.0); Platelet Count 289 K/mm3 (142-424); Red Blood Count 5.19 M/mm3 (4.20-5.40); Red Cell Distribution Width 15.9 % (11.5-17.5)
[2018-07-04 11:05] LABS: Thyroid Stimulating Hormone 0.02 uIU/ml (0.358-3.740)
[2018-07-05 09:16] LABS: HIV Screen 4th Generation wRfx Non Reactive (Non Reactive)
[2018-07-07 08:37] LABS: Hepatitis B Surface Antigen Negative (Negative); Rapid Plasma Reagin Ab Titer Non Reactive (NonRea<1:1); Rubella Antibodies, IgG 4.46 index (Immune >0.99)
== END ==
PROVIDERS: Visit Provider Obstetrics & Gynecology
DX: Z34.90 Encounter for supervision of normal pregnancy, unspecified, unspecified trimester (principal)
CPT/HCPCS: 36415; 84443; 85025; 86592; 86703; 86762; 86850; 87340; G0432

== ENCOUNTER 2018-07-10 10:12 | Outpatient (CLI) | payer OTHER, SELFPAY ==
[2018-07-10] VITALS (9 sets, daily range): BP systolic 102–159; BP diastolic 58–100; PULSE 87–110; RESP 18–20; TEMP 36.2–36.8; O2SAT 95–99; BMI 65.0
--- NOTE | 2018-07-10 10:24 | US_ITS ---
US OB transvaginal HISTORY: ITS.REASON: threatened ORDERING PHYSICIAN: Palomo Angel MD PATIENT AGE: 27 years COMPARISON: None FINDINGS: There is an intrauterine gestational sac . A pole is present with a crown-rump length of 1.3 cm correlating to a gestational age of 7 weeks and 4 days. heart tones however are not identified. The yolk sac is collapsed.. There is a small right ovarian cyst at 17 mm. IMPRESSION: Intrauterine gestation at 7 weeks 4 days. No heart tones are evident. Consistent with incomplete spontaneous miscarriage
[2018-07-10 12:23] LABS: HCG,Quantitative 11397 mIU/mL
--- NOTE | 2018-07-10 16:24 | P.OP_ITS ---
Date of procedure: 07/10/18 Pre-op Diagnosis:: Missed spontaneous Post-op Diagnosis:: Missed spontaneous Procedure performed:: Dilatation and suction curettage Surgeon:: Palomo Angel MD DIRECTOR OF ATHLETICS:: Yosvany Louie Anesthesia: GETA Estimated blood loss (mL): 100 Operative findings:: Missed spontaneous Operative note:: After the patient was prepped and draped in the usual fashion and general in the excised anteverted uterus, with no palpable adnexal masses. A weighted speculum was placed within the posterior fourchette of the vagina, and the anterior lip of the cervix was grasped with a single-tooth tenaculum. The uterus was sounded in an anteverted direction to 9 cm, and easily admitted a #12 Hegar dilator. The cervix was easily dilated to #20 Hegar dilators. A sharp curette was introduced into the endometrial cavity, with the retrieval of a moderate amount of products of conception and blood. This was followed by suction with a #9 curved suction tip, and again by sharp curettage and suction, until it was felt that the cavity was clean. Intravenous Pitocin was then begun and the uterus was then the procedure. The instruments were removed. The sponge and needle counts correct. Blood loss was 100 cc. The patient tolerated the procedure well, and was taken to PACU in excellent condition. Her blood type is O Rh+, and therefore she is a candidate for RhoGam. She will be discharged today, if her vital signs are stable. Condition: stable Disposition: same day Specimens:: Products of conception Complications:: None
--- NOTE | 2018-07-10 17:51 | PC.NURSE ---
1635- 2 mg versed given per beekeeper orders. see emar. vss.
[2018-07-10 17:52] LABS: Hematocrit 39.3 % (37.0-47.0)
== END 2018-07-10 17:31 | disposition home or self-care (01) ==
LOC: LAB 13:41 → OR 13:43
PROVIDERS: PCP Physician Assistant; Visit Provider Obstetrics & Gynecology
DX: Z34.90 Encounter for supervision of normal pregnancy, unspecified, unspecified trimester (principal); O02.1 Missed abortion
CPT/HCPCS: 59821; 36415; 76817; 84702; 85014; 85018; 96374; J2405

== ENCOUNTER → 2018-09-10 14:33 | Outpatient (CLI) | payer OTHER, SELFPAY | PROVIDERS: Visit Provider Physician Assistant | DX: N89.8 Other specified noninflammatory disorders of vagina (principal) | CPT/HCPCS: 87210 ==

== ENCOUNTER → 2018-09-10 19:04 | Outpatient (CLI) | payer OTHER, SELFPAY ==
[2018-09-12 23:11] LABS: Neisseria gonorrhoeae, NAA Negative (Negative)
== END ==
PROVIDERS: Visit Provider Physician Assistant
DX: R10.9 Unspecified abdominal pain (principal); N76.0 Acute vaginitis
CPT/HCPCS: 87086; 87491; 87591

== ENCOUNTER → 2020-12-14 10:13 | Outpatient (CLI) | payer OTHER, SELFPAY ==
[2020-12-14 11:19] LABS: Alanine Aminotransferase 23 U/L (12-78); Albumin Level 3.6 g/dl (3.5-5.0); Albumin/Globulin Ratio 1.2 (1.1-1.8); Alkaline Phosphatase 105 U/L (38-126); Anion Gap 12.9 mEq/L (5-15); Aspartate Amino Transferase 24 U/L (14-36); Bilirubin,Total 0.4 mg/dl (0.2-1.3); Blood Urea Nitrogen 10 mg/dl (7-17); Calcium 9.1 mg/dl (8.4-10.2); Carbon Dioxide 26 mmol/L (22.0-30.0); Chloride 105 mmol/L (98-107); Chol/HDL Ratio 2.3 (1-3.5); Cholesterol 108 mg/dl (140-200); Estimated Glomerular Filt Rate 263 ml/min (>60); GFR (African American) 318 ML/MIN (>60); Globulin 3.1 g/dL (1.3-3.2); Glucose 103 mg/dl (74-100); HDL Cholesterol 48 mg/dl (40-60); Potassium 4.9 mmoL/L (3.5-5.1); Sodium 139 mmol/L (136-145); Total Protein,Serum 6.7 g/dl (6.3-8.2); Triglycerides 143 mg/dl (30-150); VLDL Cholesterol 29 mg/dL (0-40)
[2020-12-14 11:36] LABS: 25-OH Vitamin D, Total 40.1 ng/mL (30-100)
[2020-12-14 12:27] LABS: Basophils # 0.1 K/mm3 (0-0.2); Basophils % 0.9 % (0.1-2.0); Eosinophils # 0.1 K/mm3 (0.0-0.4); Eosinophils % 1.2 % (0.1-12.0); Hemoglobin 13.5 g/dL (12.2-16.2); Lymphocytes # 3.1 K/mm3 (0.7-4.5); Lymphocytes % 44.4 % (10-50); Mean Corpuscular HGB Conc 34.7 g/dL (31.8-35.4); Mean Corpuscular Hemoglobin 25.4 pg (27.0-31.2); Mean Corpuscular Volume 73.3 fl (81-99); Mean Platelet Volume 8.9 fl (7.4-10.4); Monocytes # 0.4 K/mm3 (0.1-1.0); Monocytes % 5.3 % (1.7-9.3); Neutrophils # 3.4 K/mm3 (1.8-7.8); Neutrophils % 48.2 % (37.0-80.0); Platelet Count 323 K/mm3 (142-424); Red Blood Count 5.32 M/mm3 (4.20-5.40); Red Cell Distribution Width 15.2 % (11.5-17.5); White Blood Count 6.9 K/mm3 (4.8-10.8)
[2020-12-14 16:44] LABS: Direct LDL Cholesterol 36.74 mg/dL (100-129)
[2020-12-14 17:04] LABS: Thyroid Stimulating Hormone < 0.02 uIU/mL (0.465-4.68)
[2020-12-14 17:06] LABS: T4 (Thyroxine) > 24.9 ug/dl (5.53-11.0)
== END ==
PROVIDERS: Visit Provider Nurse Practitioner Family
DX: R07.89 Other chest pain (principal); E66.01 Morbid (severe) obesity due to excess calories; Z68.44 Body mass index [BMI] 60.0-69.9, adult; R51.9 Headache, unspecified
CPT/HCPCS: 36415; 80053; 80061; 82306; 84436; 84443; 85025

== ENCOUNTER → 2022-07-18 09:15 | Outpatient (CLI) | payer OTHER, SELFPAY ==
[2022-07-18 15:45] LABS: Basophils % 0.6 % (0.1-2.0); Eosinophils % 0.9 % (0.1-12.0); Hematocrit 41.9 % (37.0-47.0); Hemoglobin 13.2 g/dL (12.2-16.2); Lymphocytes # 2.6 K/mm3 (0.7-4.5); Lymphocytes % 53.4 % (10-50); Mean Corpuscular HGB Conc 31.6 g/dL (31.8-35.4); Mean Corpuscular Hemoglobin 24.9 pg (27.0-31.2); Mean Corpuscular Volume 78.9 fl (81-99); Mean Platelet Volume 9.9 fl (7.4-10.4); Monocytes # 0.4 K/mm3 (0.1-1.0); Monocytes % 7.1 % (1.7-9.3); Neutrophils # 1.9 K/mm3 (1.8-7.8); Platelet Count 261 K/mm3 (142-424); Red Blood Count 5.31 M/mm3 (4.20-5.40); Red Cell Distribution Width 14.9 % (11.5-17.5); White Blood Count 4.9 K/mm3 (4.8-10.8)
[2022-07-18 16:00] LABS: MANUAL DIFFERENTIAL MANUAL DIFFERENTIAL (MANUAL DIFF)
[2022-07-18 16:44] LABS: Alanine Aminotransferase 41 U/L (12-78); Albumin Level 3.4 g/dl (3.5-5.0); Albumin/Globulin Ratio 1.1 (1.1-1.8); Alkaline Phosphatase 125 U/L (38-126); Aspartate Amino Transferase 39 U/L (14-36); Bilirubin,Total 0.6 mg/dl (0.2-1.3); Blood Urea Nitrogen 13 mg/dl (7-17); Calcium 8.7 mg/dl (8.4-10.2); Carbon Dioxide 28 mmol/L (22.0-30.0); Chloride 111 mmol/L (98-107); Chol/HDL Ratio 2.1 (1-3.5); Cholesterol 104 mg/dl (140-200); Estimated Glomerular Filt Rate 261 ml/min (>60); GFR (African American) 316 ML/MIN (>60); Globulin 3.1 g/dL (1.3-3.2); Glucose 121 mg/dl (74-100); HDL Cholesterol 49 mg/dl (40-60); Sodium 139 mmol/L (136-145); Total Protein,Serum 6.5 g/dl (6.3-8.2); Triglycerides 97 mg/dl (30-150); VLDL Cholesterol 19 mg/dL (0-40)
[2022-07-18 16:55] LABS: Direct LDL Cholesterol 36.66 mg/dL (100-129)
[2022-07-18 17:02] LABS: 25-OH Vitamin D, Total 26.6 ng/mL (30-100)
[2022-07-18 17:15] LABS: Thyroid Stimulating Hormone < 0.02 uIU/mL (0.465-4.68)
[2022-07-18 22:38] LABS: Eosinophils % 4 % (0-3); Lymphocytes % 48 % (10-50); Monocytes % 5 % (2-9); Neutrophils % 43 % (42-76); Platelet Estimate Normal; RBC Morphology Normal; Total Cells Counted 100
== END ==
PROVIDERS: PCP Physician Assistant; Visit Provider Physician Assistant
DX: I10 Essential (primary) hypertension (principal); F41.9 Anxiety disorder, unspecified; F32.9 Major depressive disorder, single episode, unspecified; E66.9 Obesity, unspecified; E55.9 Vitamin D deficiency, unspecified; Z68.42 Body mass index [BMI] 45.0-49.9, adult; Z79.899 Other long term (current) drug therapy
CPT/HCPCS: 80053; 80061; 82306; 84443; 85007; 85025

== ENCOUNTER → 2022-07-19 10:49 | Outpatient (CLI) | payer OTHER, SELFPAY ==
[2022-07-19 14:54] LABS: Hemoglobin A1C 5.3 % (4.0-6.0)
== END ==
LOC: LAB.DROPOF 08-08 10:50
PROVIDERS: PCP Physician Assistant; Visit Provider Physician Assistant
DX: R73.09 Other abnormal glucose (principal)
CPT/HCPCS: 83036

== ENCOUNTER → 2022-08-06 10:19 | Outpatient (CLI) | payer OTHER, SELFPAY | PROVIDERS: PCP Physician Assistant; Visit Provider Physician Assistant | DX: G47.30 Sleep apnea, unspecified (principal); R40.0 Somnolence; R06.83 Snoring | CPT/HCPCS: 95806 ==

== ENCOUNTER → 2022-08-30 10:36 | Outpatient (CLI) | payer OTHER, SELFPAY | PROVIDERS: PCP Physician Assistant; Visit Provider Specialist | DX: G47.33 Obstructive sleep apnea (adult) (pediatric) (principal) | CPT/HCPCS: 94762 ==